=== PATIENT | female | born 1960 | race Caucasian/White ===

== ENCOUNTER 2017-02-15 18:38 | Emergency (ER) | payer MEDICAID, OTHER ==
[2017-02-15 18:57] VITALS: BP 142/94
--- NOTE | 2017-02-16 01:04 | ER ---
The patient's history was taken from the patient and from attending box fabricator. The patient is currently in holding cell for intoxication. REASON FOR VISIT: The patient banged her head on the wall of her cell. There was no loss of consciousness. No attempt to hurt herself, this is accidental in nature. There is a bit of bleeding, so they brought her in to be evaluated whether she needed sutures or tetanus update. The patient has a history of alcohol abuse. She also has a seizure history with a negative seizure workup in the past. She is on Dilantin which she last took earlier today. She had an elevated alcohol level earlier today of approximately 300. She does complain of some discomfort in the area where she banged her head. HISTORY OF PRESENT ILLNESS: The patient lost her footing, banged her head on the wall of her cell. There was no loss of consciousness. She has scalp abrasion on occipital area with some bleeding that has since stopped. She does have a bit of soft tissue swelling present. She had no seizure. She was monitored with a video during the entire time. She has no loss of consciousness. No neurologic complaints. She denies any vomiting, vision changes, fevers, cough, chest pain, palpitations, diarrhea, constipation, urinary complaints, rashes or sores, joint pains, or limited joint motions. No neck pain. She did not suffer any complaints of biting her tongue. When she hit her head. ALLERGIES: THE PATIENT HAS NO KNOWN DRUG ALLERGIES. CURRENT MEDS: Dilantin, she takes 100 mg t.i.d. and she did take her medicine today. PHYSICAL EXAMINATION: VITAL SIGNS: Upon admission to the emergency room, show blood pressure 142/94, pulse 69, saturation on room air 100%. GENERAL: Well-developed, well-nourished female, alert and oriented x3. No acute distress. HEENT: Her head and face are symmetric. She does have some soft tissue swelling on posterior occipital area. There is no evidence of bone depression. There is some abrasion of the skin but no abebe laceration. There is some dry blood present in her hair which was cleaned and dried. Her eyes show EOMI, PERRLA. No nystagmus. No scleral icterus. Ears show normal TMs bilaterally. Nose clear. No blood. Mouth and throat are clear. There is no bleeding. There is no tongue biting. There is no biting of the sides of her mouth. NECK: Supple and symmetric. Trachea is midline. No masses. Thyroid is normal. No bruits are present. HEART: Shows a regular rate and rhythm. No murmurs, rubs, or gallops. No S3. No S4. LUNGS: Clear and equal. ABDOMEN: Soft and nontender without any organomegaly. Bowel sounds x4. BACK: Shows no CVA or cord tenderness. Her gait is normal and narrow. NEUROLOGIC: Cranial nerves 2 through 12 are intact. Babinski is negative. Frontal release signs negative. The patient moves all extremities normally PSYCHIATRIC: The patient's mood is normal and cooperative. ASSESSMENT: 1. Acute alcohol intoxication. 2. Abrasion of scalp. 3. Contusion of head. PLAN: The patient is up to date with her tetanus. She has been seen regularly in clinic. I think she can go back to her cell where she is being monitored closely. If there is any problem, she will come back later, and we will see if she will need for any imaging at that time. I did caution her that she may develop infection and to try to keep the wounds clean. If she develops any pain or fevers over the next 48 hours or so, to return to the clinic or the ER for further evaluation. MARIA /[id number]
== END 2017-02-15 19:15 ==
LOC: LB.ED 18:38
DX: F10.129 Alcohol abuse with intoxication, unspecified (principal); S00.01XA Abrasion of scalp, initial encounter; S00.93XA Contusion of unspecified part of head, initial encounter; X58.XXXA Exposure to other specified factors, initial encounter
CPT/HCPCS: 99282; 99283

== ENCOUNTER 2017-11-29 12:20 | Emergency (ER) | payer OTHER, MEDICAID ==
[2017-11-29 13:23] VITALS: BP 124/77
--- NOTE | 2017-11-29 13:29 | EDM.PDOC ---
ED HPI GENERAL MEDICAL PROBLEM - General Chief Complaint: General Stated Complaint: LEFT KNEE PAIN Time Seen by Provider: 11/29/17 13:28 Source of Information: Reports: Patient, RN History Limitations: Reports: No Limitations - History of Present Illness INITIAL COMMENTS - FREE TEXT/NARRATIVE: 57 yr female presents to ER after a fall onto her left knee at work. States it was slippery and she fell. States pain to left knee and heard a pop when she fell. Pt has ice to knee and has lower leg elevated. Mild swelling to knee noted. ROM limited mildly r/t pain. Left Knee Pain Score (Numeric/FACES): 5 - Related Data Allergies Allergy/AdvReac Type Severity Reaction Status Date / Time No Known Allergies Allergy Verified 04/01/16 08:08 Home Meds: Home Meds Phenytoin 100 mg PO TID #90 cap.er 04/02/16 [Rx] Past Medical History HEENT History: Reports: Impaired Vision Cardiovascular History: Reports: Other (See Below) Other Cardiovascular History: palpitations Gastrointestinal History: Reports: Chronic Constipation, Other (See Below) Other Gastrointestinal History: Has had occult stools; had colonoscopy; unable to get through Neurological History: Reports: Seizure, Other (See Below) Other Neuro History: New onset; Psychiatric History: Reports: Anxiety, Depression, Panic Attack - Infectious Disease History Infectious Disease History: Reports: Measles, Mumps Social & Family History - Family History Musculoskeletal: Reports: None Hematologic: Reports: None Immunologic: Reports: None Oncologic: Reports: None - Tobacco Use Smoking Status *Q: Former Smoker Years of Tobacco use: 15 Packs/Tins Daily: 1 Used Tobacco, but Quit: Yes Month Tobacco Last Used: September Second Hand Smoke Exposure: No ED ROS GENERAL - Review of Systems Review Of Systems: See Below Constitutional: Reports: No Symptoms HEENT: Reports: No Symptoms Respiratory: Reports: No Symptoms Cardiovascular: Reports: No Symptoms Musculoskeletal: Reports: Joint Pain, Joint Swelling. Denies: Muscle Pain Skin: Reports: No Symptoms Neurological: Reports: No Symptoms ED EXAM, GENERAL - Physical Exam Exam: See Below Exam Limited By: No Limitations General Appearance: Alert, No Apparent Distress Ears: Hearing Grossly Normal Nose: Normal Inspection Throat/Mouth: Normal Voice, No Airway Compromise Head: Atraumatic, Normocephalic Respiratory/Chest: No Respiratory Distress Extremities: Joint Swelling, Limited Range of Motion, Redness. No: Increased Warmth Neurological: Alert, Oriented, Normal Cognition, Other (Pain with ambulation) Skin Exam: Warm, Dry, Normal Color Course - Vital Signs Last Recorded V/S: Last Vital Signs Temp 98.2 F 11/29/17 13:21 Pulse 86 11/29/17 13:21 Resp BP 124/77 11/29/17 13:21 Pulse Ox 99 11/29/17 13:21 - Orders/Labs/Meds Meds: Medications Discontinued Medications Generic Name Dose Route Start Last Admin Trade Name Wiliam PRN Reason Stop Dose Admin Ketorolac Tromethamine Confirm 11/29/17 13:56 11/29/17 14:10 Toradol Administered 11/29/17 13:57 30 mg Dose Administration 30 mg .ROUTE .STK-MED ONE - Re-Assessments/Exams Free Text/Narrative Re-Assessment/Exam: 11/29/17 18:52 LE X-ray to left knee, reviewed results with patient. Nondisplaced fracture to patella. Recommend off work X 10 days, RTC next week for follow-up Recommend light activity at home with knee brace on and ice to area 3-5x/day. May take off brace while showering. Recommend no bedrest with this. Rest and light activity at home. May use Ibuprofen and Tylenol for pain relief. Toradol 30 mg IM given X1 in ER. Discharge to care of family. Departure - Departure Time of Disposition: 14:52 Disposition: Home, Self-Care 01 Condition: Good Clinical Impression: Patellar fracture - Discharge Information Instructions: Patellar Fracture, Adult Referrals: PCP,None [Primary Care Provider] - Forms: ED Department Discharge Care Plan Goals: Wear splint as much as possible. Do light stuff around the house. Return to hospital or clinic with any other concerns or if any other problems arise. May take tylenol or Ibuprofen for pain.
[2017-11-29] MEDS ORDERED: Ketorolac 30 MG/ML SDV ONE (13:56)
--- NOTE | 2017-11-29 18:21 | CR ---
DATE OF SERVICE: 11/29/17 CLINICAL DATA: fell on slippery floor LEFT KNEE: No priors. There is an oblique fracture through the mid and distal patella that is nondisplaced. There is a large joint effusion. No other acute abnormalities. IMPRESSION: Patellar fracture with large joint effusion. [id number] [facility]
== END 2017-11-29 14:52 | disposition home or self-care (01) ==
LOC: LB.ED 12:20
DX: S82.002A Unspecified fracture of left patella, initial encounter for closed fracture (principal); Z87.891 Personal history of nicotine dependence; W01.0XXA Fall on same level from slipping, tripping and stumbling without subsequent striking against object, initial encounter; Y99.0 Civilian activity done for income or pay
CPT/HCPCS: 73562; 99283; J1885

== ENCOUNTER 2021-03-27 14:58 | Emergency (ER) | payer SELFPAY ==
[2021-03-27 15:11] VITALS: BP 110/80; PULSE 79
[2021-03-27] MEDS ORDERED: Ketorolac 60 MG/2 ML SDV IM ONE (16:09)
--- NOTE | 2021-03-27 16:14 | EDM.PDOC ---
ED HPI GENERAL MEDICAL PROBLEM - General Chief Complaint: General Stated Complaint: KNEE INJURY AT HOME 03/27/21 Time Seen by Provider: 03/27/21 15:20 Source of Information: Reports: Patient History Limitations: Reports: No Limitations - History of Present Illness INITIAL COMMENTS - FREE TEXT/NARRATIVE: patient here due to right knee pain -- reports that she tripped while walking her dog and landed on her right knee. occurred an hour ago - pain 9 out of 10. no other injuries. Onset: Sudden Duration: Hour(s): (1) Location: Reports: Lower Extremity, Right Quality: Reports: Sharp Severity: Severe Improves with: Reports: Immobilization Worsens with: Reports: Movement Right Knee Pain Score (Numeric/FACES): 5 - Related Data Allergies Allergy/AdvReac Type Severity Reaction Status Date / Time No Known Allergies Allergy Verified 08/28/18 11:16 Home Meds: Home Meds NK [No Known Home Meds] 08/28/18 [History] Past Medical History - Past Health History Medical/Surgical History: Denies Medical/Surgical History HEENT History: Reports: Impaired Vision Cardiovascular History: Reports: Other (See Below) Other Cardiovascular History: palpitations Gastrointestinal History: Reports: Chronic Constipation, Other (See Below) Other Gastrointestinal History: Has had occult stools; had colonoscopy; unable to get through Neurological History: Reports: Seizure, Other (See Below) Other Neuro History: New onset; Psychiatric History: Reports: Anxiety, Depression, Panic Attack - Infectious Disease History Infectious Disease History: Reports: Measles, Mumps Social & Family History - Family History Musculoskeletal: Reports: None Hematologic: Reports: None Immunologic: Reports: None Oncologic: Reports: None - Tobacco Use Tobacco Use Status *Q: Current Every Day Tobacco User Years of Tobacco use: 20 Packs/Tins Daily: 0.5 Used Tobacco, but Quit: No Second Hand Smoke Exposure: Yes - Caffeine Use Caffeine Use: Reports: Coffee, Soda - Recreational Drug Use Recreational Drug Use: No ED ROS GENERAL - Review of Systems Review Of Systems: See Below Constitutional: Reports: No Symptoms HEENT: Reports: No Symptoms Respiratory: Reports: No Symptoms Cardiovascular: Reports: No Symptoms GI/Abdominal: Reports: No Symptoms Musculoskeletal: Reports: Other (knee pain) Skin: Reports: No Symptoms Neurological: Reports: No Symptoms ED EXAM, GENERAL - Physical Exam Exam: See Below Exam Limited By: No Limitations General Appearance: Alert, WD/WN, No Apparent Distress Eye Exam: Bilateral Eye: EOMI Respiratory/Chest: No Respiratory Distress, Lungs Clear Cardiovascular: Normal Peripheral Pulses, Regular Rate, Rhythm Back Exam: Normal Inspection, Full Range of Motion Extremities: Other (right knee swelling, mild TPP, and limited ROM due to pain ) Skin Exam: Warm Course - Vital Signs Last Recorded V/S: Last Vital Signs Temp 36.3 C 03/27/21 15:29 Pulse 79 03/27/21 15:29 Resp 16 03/27/21 15:29 BP 110/80 03/27/21 15:29 Pulse Ox 100 03/27/21 15:29 - Orders/Labs/Meds Orders: Active Orders 24 hr Category Date Time Status Knee 3V Rt [CR] Stat Exams 03/27/21 15:18 Taken - Re-Assessments/Exams Free Text/Narrative Re-Assessment/Exam: 03/27/21 16:12 Xrays right knee - possible fractured patella with small effusion Departure - Departure Time of Disposition: 16:12 Disposition: Home, Self-Care 01 Condition: Good Clinical Impression: Right patella fracture Qualifiers: Encounter type: initial encounter Fracture type: closed Fracture morphology: transverse Fracture alignment: nondisplaced Qualified Code(s): S82.034A - Nondisplaced transverse fracture of right patella, initial encounter for closed fracture - Discharge Information *PRESCRIPTION DRUG MONITORING PROGRAM REVIEWED*: Yes *COPY OF PRESCRIPTION DRUG MONITORING REPORT IN PATIENT MILANA: Yes Referrals: PCP,None [Primary Care Provider] - Sepsis Event Note (ED) - Evaluation Sepsis Screening Result: No Definite Risk - Focused Exam Vital Signs: Vital Signs Temp Pulse Resp BP Pulse Ox 03/27/21 15:29 36.3 C 79 16 110/80 100 03/27/21 15:09 36.3 C 79 16 110/80 100 - Problem List & Annotations (1) Patellar fracture SNOMED Code(s): 74637993 Code(s): S82.009A - UNSP FRACTURE OF UNSP PATELLA, INIT FOR CLOS FX Status: Acute Priority: Medium Current Visit: No Qualifiers: Encounter type: initial encounter Fracture type: closed Fracture morphol ogy: longitudinal Fracture alignment: nondisplaced Laterality: right Qualified Code(s): S82.024A - Nondisplaced longitudinal fracture of right patella, initial encounter for closed fracture - Problem List Review Problem List Initiated/Reviewed/Updated: Yes - My Orders Last 24 Hours: My Active Orders 03/27/21 15:18 Knee 3V Rt [CR] Stat - Assessment/Plan Last 24 Hours: My Active Orders 03/27/21 15:18 Knee 3V Rt [CR] Stat Plan: -- place knee in an immobilizer -- ice the affected area -- use crutches to off load on the affected side -- take pain medications as prescribed -- keep leg elevated to help decrease the swelling -- follow up with the PCP in 1-2 weeks
[2021-03-27] MEDS ORDERED: Ketorolac 60 MG/2 ML SDV ONE (16:22)
--- NOTE | 2021-03-28 09:34 | CR ---
DATE OF SERVICE: 03/27/21 CLINICAL DATA: pain RIGHT KNEE: No priors. There is a comminuted, minimally displaced patellar fracture. No other acute bony abnormalities. There is a moderate size joint effusion/hemarthrosis. No other significant findings. IMPRESSION: Comminuted patellar fracture with moderate joint effusion/hemarthrosis. [id number] [facility]
== END 2021-03-27 16:41 | disposition home or self-care (01) ==
LOC: LB.ED 14:58
DX: S82.034A Nondisplaced transverse fracture of right patella, initial encounter for closed fracture (principal); Z72.0 Tobacco use; W18.41XA Slipping, tripping and stumbling without falling due to stepping on object, initial encounter; Y92.009 Unspecified place in unspecified non-institutional (private) residence as the place of occurrence of the external cause
CPT/HCPCS: 73562-RT; 96372; 99283

== ENCOUNTER 2021-06-17 11:11 | Emergency (ER) | payer SELFPAY ==
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
[2021-06-17 16:04] VITALS: BP 101/68; PULSE 72
== END 2021-06-17 13:00 | disposition left against medical advice (07) ==
LOC: LB.ED 11:11
DX: F10.10 Alcohol abuse, uncomplicated (principal); S61.512A Laceration without foreign body of left wrist, initial encounter; S61.511A Laceration without foreign body of right wrist, initial encounter; X78.8XXA Intentional self-harm by other sharp object, initial encounter
CPT/HCPCS: 99284

== ENCOUNTER 2023-03-26 18:19 | Emergency (ER) | payer SELFPAY ==
[2023-03-26 18:45] VITALS: BP 97/65; PULSE 85
== END 2023-03-26 21:50 | disposition home or self-care (01) ==
LOC: LB.ED 18:19
DX: T74.91XA Unspecified adult maltreatment, confirmed, initial encounter (principal); F17.210 Nicotine dependence, cigarettes, uncomplicated
CPT/HCPCS: 99284

== ENCOUNTER 2023-05-27 09:39 | Observation (INO) | payer SELFPAY ==
[2023-05-27] MEDS ORDERED: Sodium Chloride 0.9% 1,000 ML IV ONE ×2 (09:46→11:42)
[2023-05-27] MEDS: diazePAM 5 MG/ML MDV IV ONE ×3 (09:53→13:44)
[2023-05-27 09:58] LABS: BASOPHILS ABSOLUTE AUTO 0.04 K/uL (0.02-0.10); BASOPHILS PERCENT AUTO 0.5 % (0.0-0.5); EOSINOPHILS ABSOLUTE AUTO 0.11 K/uL (0.04-0.40); EOSINOPHILS PERCENT AUTO 1.5 % (1.0-5.0); HEMATOCRIT 35.5 % (37.0-47.0); HEMOGLOBIN 12.5 g/dL (11.5-16.5); LYMPHOCYTES PERCENT AUTO 20.6 % (20.0-40.0); MEAN CORPUSCULAR HEMOGLOBIN 36.8 pg (27.0-32.0); MEAN CORPUSCULAR HGB CONC 35.2 g/dL (31.0-35.0); MEAN CORPUSCULAR VOLUME 104 fL (76-96); MEAN PLATELET VOLUME 9.6 fL (6.0-10.0); MONOCYTES ABSOLUTE AUTO 0.39 K/uL (0.20-0.80); MONOCYTES PERCENT AUTO 5.3 % (3.0-10.0); NEUTROPHILS ABSOLUTE AUTO 5.25 K/uL (2.00-7.50); NEUTROPHILS PERCENT AUTO 72.1 % (45.0-70.0); PLATELET COUNT,PLT 230 K/uL (150-500); RED CELL DISTRIBUTION WIDTH 11.8 % (11.0-16.0); WHITE BLOOD CELL COUNT,WBC 7.3 K/uL (4.0-11.0)
[2023-05-27] MEDS: levETIRAcetam 500 MG in Sodium Chloride 0.9% 100 ML IV ONE ×2 (10:12→10:18)
[2023-05-27] MEDS ORDERED: levETIRAcetam 500 MG in Sodium Chloride 0.9% 100 ML IV ONE (10:15)
[2023-05-27 10:19] LABS: A/G RATIO 0.8 (0.8-2.0); ALANINE AMINOTRANSFERASE,ALT 51 U/L (12-78); ALKALINE PHOSPHATASE 108 U/L (46-116); ANION GAP 17.3 mmol/L (5.0-15.0); ASPARTATE AMNIOTRANSFERASE,AST 74 U/L (15-37); BILIRUBIN TOTAL 0.3 mg/dL (0.0-1.0); BLOOD UREA NITROGEN,BUN 10 mg/dL (8-26); BUN/CREATININE RATIO 10.2 (6-25); CALCIUM 9.1 mg/dL (8.5-10.1); CARBON DIOXIDE,CO2 18.2 mmol/L (21.0-32.0); CHLORIDE,CL 105 mmol/L (98-107); CREATININE 0.98 mg/dL (0.55-1.02); ESTIMATED GFR 65 mL/min (>60); GLUCOSE RANDOM 169 mg/dL (74-100); POTASSIUM,K 4.5 mmol/L (3.5-5.1); PROTEIN TOTAL,TP 6.6 g/dL (6.4-8.2); SODIUM,NA 136 mmol/L (136-145)
[2023-05-27 10:41] LABS: APPEARANCE,URINE CLEAR (CLEAR); BILIRUBIN,URINE NEGATIVE (NEGATIVE); COLOR,URINE YELLOW; GLUCOSE,URINE NEGATIVE (NEGATIVE); KETONES,URINE NEGATIVE (NEGATIVE); LEUKOCYTE ESTERASE,URINE NEGATIVE (NEGATIVE); NITRITE,URINE NEGATIVE (NEGATIVE); OCCULT BLOOD,URINE NEGATIVE (NEGATIVE); PROTEIN,URINE 100 mg/dL (NEGATIVE); UROBILINOGEN,URINE 0.2 E.U./dL (0.2-1.0)
[2023-05-27 10:45] LABS: AMPHETAMINES SCREEN, URINE NEGATIVE (NEGATIVE); BARBITURATE SCREEN,URINE NEGATIVE (NEGATIVE); BENZODIAZEPINES SCREEN,URINE NEGATIVE (NEGATIVE); METHAMPHETAMINES SCREEN, URINE NEGATIVE (NEGATIVE)
[2023-05-27 10:46] LABS: METHADONE SCREEN, URINE NEGATIVE (NEGATIVE); OXYCODONE SCREEN,URINE NEGATIVE (NEGATIVE); THC SCREEN,URINE 50 NG/ML NEGATIVE (NEGATIVE)
[2023-05-27 10:49] LABS: SQUAMOUS EPITHELIAL CELLS,UR OCCASIONAL /HPF; WBC,URINE 0-5 /HPF
[2023-05-27 10:50] LABS: FINE GRANULAR CASTS,URINE OCCASIONAL /HPF
[2023-05-27] MEDS ORDERED: levETIRAcetam 1,000 MG in Sodium Chloride 0.9% 100 ML IV ONE ×2 (10:59→11:40)
[2023-05-27] MEDS ORDERED: Thiamine 100 MG in Sodium Chloride 0.9% 100 ML IV ONE (11:00)
[2023-05-27] MEDS ORDERED: Thiamine 200 MG/2 ML MDV IVPUSH ONE (11:35)
[2023-05-27] MEDS: Magnesium Sulfate/Water 2 GM in Premix Bag 1 BAG IV ONE ×2 (12:06→12:07)
[2023-05-27] MEDS: Magnesium Sulfate/Water 50 ML ONE ×2 (12:06→12:11)
[2023-05-27] MEDS: Ondansetron 4 MG/2 ML SDV IVPUSH PRN ×2 (13:50→19:59)
[2023-05-27] MEDS ORDERED: LORazepam 1 MG Tab PO PRN (18:29)
[2023-05-27] MEDS ORDERED: Acetaminophen 325 MG Tab PO PRN (18:33)
[2023-05-27] MEDS ORDERED: Sodium Chloride 0.9% 1,000 ML IV SCH (20:00)
[2023-05-27] MEDS: Enoxaparin 40 MG/0.4 ML Syringe SUBCUT SCH (20:06)
[2023-05-27] MEDS: levETIRAcetam 500 MG Tab PO SCH (20:09)
[2023-05-28] MEDS ORDERED: FLUoxetine 20 MG Cap PO SCH (08:00)
[2023-05-28] MEDS: Enoxaparin 40 MG/0.4 ML Syringe SUBCUT SCH (08:04)
[2023-05-28] MEDS: levETIRAcetam 500 MG Tab PO SCH (08:04)
[2023-05-28] MEDS ORDERED: Losartan 50 MG Tab PO SCH (08:15)
[2023-05-28 08:35] LABS: BASOPHILS ABSOLUTE AUTO 0.03 K/uL (0.02-0.10); BASOPHILS PERCENT AUTO 0.4 % (0.0-0.5); EOSINOPHILS ABSOLUTE AUTO 0.07 K/uL (0.04-0.40); EOSINOPHILS PERCENT AUTO 0.9 % (1.0-5.0); HEMATOCRIT 34.7 % (37.0-47.0); LYMPHOCYTES PERCENT AUTO 18.3 % (20.0-40.0); MEAN CORPUSCULAR HGB CONC 34.6 g/dL (31.0-35.0); MEAN CORPUSCULAR VOLUME 104 fL (76-96); MEAN PLATELET VOLUME 9.9 fL (6.0-10.0); MONOCYTES PERCENT AUTO 5.2 % (3.0-10.0); NEUTROPHILS ABSOLUTE AUTO 5.74 K/uL (2.00-7.50); NEUTROPHILS PERCENT AUTO 75.2 % (45.0-70.0); PLATELET COUNT,PLT 206 K/uL (150-500); RED BLOOD CELL COUNT 3.33 M/uL (3.80-5.80); RED CELL DISTRIBUTION WIDTH 11.7 % (11.0-16.0); WHITE BLOOD CELL COUNT,WBC 7.6 K/uL (4.0-11.0)
[2023-05-28 08:45] LABS: A/G RATIO 0.8 (0.8-2.0); ALBUMIN 2.7 g/dL (3.4-5.0); ANION GAP 19.9 mmol/L (5.0-15.0); BILIRUBIN TOTAL 0.3 mg/dL (0.0-1.0); BUN/CREATININE RATIO 9.3 (6-25); CALCIUM 8.7 mg/dL (8.5-10.1); CARBON DIOXIDE,CO2 22.4 mmol/L (21.0-32.0); CREATININE 0.75 mg/dL (0.55-1.02); EST CRCL DRUG DOSING (CG) 61.51 mL/min; POTASSIUM,K 5.3 mmol/L (3.5-5.1); PROTEIN TOTAL,TP 6.2 g/dL (6.4-8.2)
[2023-05-28] MEDS ORDERED: Magnesium Sulfate/Water 50 ML IV ONE (10:10)
[2023-05-28 16:05] VITALS: BP 174/105; PULSE 68
== END 2023-05-28 16:58 | disposition home or self-care (01) ==
LOC: LB.ED 09:39 → LB.MS 18:15 → UNDOADMOB 18:15 → LB.MS 18:22 → LB.ED 18:30
PROVIDERS: ADMIT Physician Assistant; ATTEND Physician Assistant
DX: R56.9 Unspecified convulsions (principal); K59.09 Other constipation; F41.9 Anxiety disorder, unspecified; F32.A Depression, unspecified; R00.2 Palpitations; Z79.899 Other long term (current) drug therapy
CPT/HCPCS: 36415; 51702; 70450; 70553; 80053; 80307; 81001; 83605; 83735; 85025; 93005; 96361; 96365; 96366; 96372; 96375; 96376; 97161; 99285; A9270; G0378; J1650; J1953; J2405; J3360; J3411; J3475; J3490; J7030; 93010

== ENCOUNTER 2023-05-30 18:27 | Observation (INO) | payer SELFPAY ==
[2023-05-30] MEDS ORDERED: Ondansetron 4 MG/2 ML SDV IVPUSH ONE (19:05)
[2023-05-30] MEDS ORDERED: Sodium Chloride 0.9% 10 ML Syringe FLUSH PRN (19:05)
[2023-05-30 19:29] LABS: BASOPHILS ABSOLUTE AUTO 0.04 K/uL (0.02-0.10); BASOPHILS PERCENT AUTO 0.4 % (0.0-0.5); EOSINOPHILS ABSOLUTE AUTO 0.05 K/uL (0.04-0.40); EOSINOPHILS PERCENT AUTO 0.5 % (1.0-5.0); HEMATOCRIT 38.5 % (37.0-47.0); HEMOGLOBIN 13.9 g/dL (11.5-16.5); LYMPHOCYTES ABSOLUTE AUTO 1.91 K/uL (1.50-4.00); MEAN CORPUSCULAR HEMOGLOBIN 36.3 pg (27.0-32.0); MEAN CORPUSCULAR HGB CONC 36.1 g/dL (31.0-35.0); MEAN CORPUSCULAR VOLUME 101 fL (76-96); MEAN PLATELET VOLUME 9.7 fL (6.0-10.0); MONOCYTES ABSOLUTE AUTO 0.85 K/uL (0.20-0.80); NEUTROPHILS ABSOLUTE AUTO 7.74 K/uL (2.00-7.50); NEUTROPHILS PERCENT AUTO 73.1 % (45.0-70.0); PLATELET COUNT,PLT 271 K/uL (150-500); RED BLOOD CELL COUNT 3.83 M/uL (3.80-5.80); RED CELL DISTRIBUTION WIDTH 11.8 % (11.0-16.0); WHITE BLOOD CELL COUNT,WBC 10.6 K/uL (4.0-11.0)
[2023-05-30 19:50] LABS: ALBUMIN 3.3 g/dL (3.4-5.0); BILIRUBIN TOTAL 0.5 mg/dL (0.0-1.0); BUN/CREATININE RATIO 15.9 (6-25); CALCIUM 10.6 mg/dL (8.5-10.1); CARBON DIOXIDE,CO2 25.8 mmol/L (21.0-32.0); CREATININE 1.51 mg/dL (0.55-1.02); EST CRCL DRUG DOSING (CG) 31.95 mL/min; MAGNESIUM 1.4 mg/dL (1.8-2.4); POTASSIUM,K 4.8 mmol/L (3.5-5.1); PROTEIN TOTAL,TP 7.2 g/dL (6.4-8.2)
[2023-05-30 19:51] LABS: A/G RATIO 0.9 (0.8-2.0)
[2023-05-30] MEDS ORDERED: Sodium Chloride 0.9% 1,000 ML IV ONE (19:55)
[2023-05-30] MEDS ORDERED: Magnesium Sulfate/Water 4 GM in Premix Bag 1 BAG IV ONE (19:56)
[2023-05-30] MEDS ORDERED: Magnesium Sulfate/Water 50 ML ONE ×2 (20:06)
[2023-05-30] MEDS: Magnesium Sulfate/Water 2 GM in Premix Bag 1 BAG IV ONE ×2 (20:07→20:39)
[2023-05-30] MEDS ORDERED: LORazepam 2 MG/ML SDV IVPUSH ONE ×2 (20:46→21:38)
[2023-05-30] MEDS ORDERED: LORazepam 2 MG/ML SDV ONE (20:47)
[2023-05-30] MEDS ORDERED: Thiamine 500 MG in Sodium Chloride 0.9% 250 ML IV ONE (21:13)
[2023-05-30] MEDS ORDERED: Sodium Chloride 0.9% 1,000 ML IV SCH ×2 (21:45→22:15)
[2023-05-30] MEDS ORDERED: Ibuprofen 400 MG Tab PO PRN (22:13)
[2023-05-30] MEDS ORDERED: Ondansetron 4 MG/2 ML SDV IV PRN (22:13)
[2023-05-30] MEDS ORDERED: LORazepam 2 MG/ML SDV IV SCH (23:11)
[2023-05-31 07:13] LABS: BASOPHILS ABSOLUTE AUTO 0.05 K/uL (0.02-0.10); BASOPHILS PERCENT AUTO 0.5 % (0.0-0.5); EOSINOPHILS ABSOLUTE AUTO 0.08 K/uL (0.04-0.40); EOSINOPHILS PERCENT AUTO 0.8 % (1.0-5.0); HEMATOCRIT 35.7 % (37.0-47.0); HEMOGLOBIN 12.5 g/dL (11.5-16.5); LYMPHOCYTES ABSOLUTE AUTO 2.13 K/uL (1.50-4.00); LYMPHOCYTES PERCENT AUTO 21.9 % (20.0-40.0); MEAN CORPUSCULAR HEMOGLOBIN 35.7 pg (27.0-32.0); MEAN CORPUSCULAR VOLUME 102 fL (76-96); MONOCYTES ABSOLUTE AUTO 0.83 K/uL (0.20-0.80); MONOCYTES PERCENT AUTO 8.5 % (3.0-10.0); NEUTROPHILS ABSOLUTE AUTO 6.64 K/uL (2.00-7.50); NEUTROPHILS PERCENT AUTO 68.3 % (45.0-70.0); PLATELET COUNT,PLT 222 K/uL (150-500); RED CELL DISTRIBUTION WIDTH 11.8 % (11.0-16.0); WHITE BLOOD CELL COUNT,WBC 9.7 K/uL (4.0-11.0)
[2023-05-31 07:39] LABS: A/G RATIO 0.8 (0.8-2.0); ALBUMIN 2.9 g/dL (3.4-5.0); ANION GAP 12.3 mmol/L (5.0-15.0); BILIRUBIN TOTAL 0.4 mg/dL (0.0-1.0); BUN/CREATININE RATIO 19.1 (6-25); CALCIUM 8.5 mg/dL (8.5-10.1); CARBON DIOXIDE,CO2 25.1 mmol/L (21.0-32.0); CREATININE 0.89 mg/dL (0.55-1.02); EST CRCL DRUG DOSING (CG) 54.21 mL/min; MAGNESIUM 2.1 mg/dL (1.8-2.4); POTASSIUM,K 4.4 mmol/L (3.5-5.1); PROTEIN TOTAL,TP 6.5 g/dL (6.4-8.2)
[2023-05-31] MEDS ORDERED: NIACIN 250 MG PO SCH (08:00)
[2023-05-31] MEDS ORDERED: MULTIVIT MIN PO SCH (08:00)
[2023-05-31] MEDS ORDERED: FOLIC PO SCH (08:00)
[2023-05-31] MEDS ORDERED: levETIRAcetam 500 MG Tab PO SCH (08:00)
[2023-05-31] MEDS ORDERED: DISULFIRAM 250 MG PO SCH (08:00)
[2023-05-31] MEDS ORDERED: [UNRECOGNIZED DRUG - OTHER] PO SCH (08:00)
[2023-05-31] MEDS ORDERED: Non-Formulary Medication 1 Each (Fluoxetine Hcl [Fluoxetine Hcl] 40 MG Capsule) PO SCH (08:00)
[2023-05-31] MEDS ORDERED: LUTEIN PO SCH (08:00)
[2023-05-31] MEDS ORDERED: Losartan 50 MG Tab PO SCH (08:00)
[2023-05-31] MEDS ORDERED: IRON PO SCH (08:00)
[2023-05-31 08:51] VITALS: BP 134/91; PULSE 81
== END 2023-05-31 09:08 | disposition home or self-care (01) ==
LOC: LB.ED 18:27 → LB.MS 22:10 → UNDOADMOB 22:30 → LB.MS 22:30 → UNDODISOB 05-31 09:08
PROVIDERS: ADMIT Nurse Practitioner Family; ATTEND Nurse Practitioner Family
DX: R00.2 Palpitations (principal); K59.09 Other constipation; M19.90 Unspecified osteoarthritis, unspecified site; F32.A Depression, unspecified; F41.0 Panic disorder [episodic paroxysmal anxiety]; R41.82 Altered mental status, unspecified; E83.42 Hypomagnesemia; R79.89 Other specified abnormal findings of blood chemistry; F10.90 Alcohol use, unspecified, uncomplicated; Y90.0 Blood alcohol level of less than 20 mg/100 ml; Z98.51 Tubal ligation status; Z79.899 Other long term (current) drug therapy
CPT/HCPCS: 36415; 70450; 80053; 80307; 82140; 83735; 85025; 96361; 96365; 96366; 96368; 96375; 96376; 99285-25; A0425; A0429; A9270-GY; G0378; J2060; J2405; J3411; J3475; J7030; J7050

== ENCOUNTER 2023-08-11 20:14 | Emergency (ER) | payer OTHER ==
[2023-08-11] MEDS ORDERED: Sodium Chloride 0.9% 10 ML Syringe FLUSH PRN (20:18)
[2023-08-11 20:45] LABS: BASOPHILS ABSOLUTE AUTO 0.02 K/uL (0.02-0.10); BASOPHILS PERCENT AUTO 0.4 % (0.0-0.5); EOSINOPHILS ABSOLUTE AUTO 0.02 K/uL (0.04-0.40); EOSINOPHILS PERCENT AUTO 0.4 % (1.0-5.0); HEMATOCRIT 34.6 % (37.0-47.0); LYMPHOCYTES ABSOLUTE AUTO 2.19 K/uL (1.50-4.00); LYMPHOCYTES PERCENT AUTO 45.1 % (20.0-40.0); MEAN CORPUSCULAR HEMOGLOBIN 33.1 pg (27.0-32.0); MEAN CORPUSCULAR HGB CONC 34.7 g/dL (31.0-35.0); MEAN CORPUSCULAR VOLUME 96 fL (76-96); MEAN PLATELET VOLUME 9.8 fL (6.0-10.0); MONOCYTES ABSOLUTE AUTO 0.63 K/uL (0.20-0.80); NEUTROPHILS PERCENT AUTO 41.1 % (45.0-70.0); PLATELET COUNT,PLT 123 K/uL (150-500); RED BLOOD CELL COUNT 3.62 M/uL (3.80-5.80); RED CELL DISTRIBUTION WIDTH 12.1 % (11.0-16.0); WHITE BLOOD CELL COUNT,WBC 4.9 K/uL (4.0-11.0)
[2023-08-11 20:46] LABS: APPEARANCE,URINE CLEAR (CLEAR); BILIRUBIN,URINE NEGATIVE (NEGATIVE); COLOR,URINE YELLOW; GLUCOSE,URINE NEGATIVE (NEGATIVE); KETONES,URINE TRACE mg/dL (NEGATIVE); LEUKOCYTE ESTERASE,URINE TRACE (NEGATIVE); NITRITE,URINE NEGATIVE (NEGATIVE); OCCULT BLOOD,URINE NEGATIVE (NEGATIVE); PROTEIN,URINE TRACE mg/dL (NEGATIVE); UROBILINOGEN,URINE 0.2 E.U./dL (0.2-1.0)
[2023-08-11 20:54] LABS: RBC,URINE NOT SEEN /HPF
[2023-08-11 20:55] LABS: AMORPHOUS SEDIMENT,URINE FEW /HPF; BACTERIA,URINE OCCASIONAL /HPF; HYALINE CASTS,URINE FEW /HPF; SQUAMOUS EPITHELIAL CELLS,UR FEW /HPF
[2023-08-11 21:02] LABS: A/G RATIO 0.8 (0.8-2.0); ALANINE AMINOTRANSFERASE,ALT 23 U/L (12-78); ALKALINE PHOSPHATASE 89 U/L (46-116); ANION GAP 10.7 mmol/L (5.0-15.0); ASPARTATE AMNIOTRANSFERASE,AST 17 U/L (15-37); BILIRUBIN TOTAL 0.2 mg/dL (0.0-1.0); BLOOD UREA NITROGEN,BUN 22 mg/dL (8-26); BUN/CREATININE RATIO 17.2 (6-25); CALCIUM 9.6 mg/dL (8.5-10.1); CARBON DIOXIDE,CO2 26.6 mmol/L (21.0-32.0); CHLORIDE,CL 103 mmol/L (98-107); CREATININE 1.28 mg/dL (0.55-1.02); ESTIMATED GFR 47 mL/min (>60); GLUCOSE RANDOM 138 mg/dL (74-100); POTASSIUM,K 4.3 mmol/L (3.5-5.1); PROTEIN TOTAL,TP 6.9 g/dL (6.4-8.2); SODIUM,NA 136 mmol/L (136-145)
[2023-08-11] MEDS: Sodium Chloride 0.9% 1,000 ML IV ONE (21:06)
[2023-08-11 22:29] VITALS: BP 119/80; PULSE 69
== END 2023-08-11 22:12 | disposition home or self-care (01) ==
LOC: LB.ED 20:14
DX: M54.9 Dorsalgia, unspecified (principal); R51.9 Headache, unspecified; M54.2 Cervicalgia; I10 Essential (primary) hypertension; Z79.899 Other long term (current) drug therapy; W10.9XXA Fall (on) (from) unspecified stairs and steps, initial encounter
CPT/HCPCS: 36415; 51701; 70450; 72125; 72128; 72131; 80053; 81001; 85025; 93005; 96360; 99283; 99284-25; J7030

== ENCOUNTER 2024-11-07 10:31 | Emergency (ER) | payer OTHER ==
[2024-11-07] MEDS: Sodium Chloride 0.9% 1,000 ML IV SCH (11:00)
[2024-11-07 11:15] LABS: BASOPHILS ABSOLUTE AUTO 0.01 K/uL (0.02-0.10); BASOPHILS PERCENT AUTO 0.2 % (0.0-0.5); EOSINOPHILS ABSOLUTE AUTO 0.08 K/uL (0.04-0.40); EOSINOPHILS PERCENT AUTO 1.5 % (1.0-5.0); HEMATOCRIT 24.2 % (37.0-47.0); LYMPHOCYTES ABSOLUTE AUTO 0.82 K/uL (1.50-4.00); LYMPHOCYTES PERCENT AUTO 15.9 % (20.0-40.0); MEAN CORPUSCULAR HEMOGLOBIN 33.9 pg (27.0-32.0); MEAN CORPUSCULAR HGB CONC 33.1 g/dL (31.0-35.0); MEAN CORPUSCULAR VOLUME 103 fL (76-96); MEAN PLATELET VOLUME 11.6 fL (6.0-10.0); MONOCYTES ABSOLUTE AUTO 0.61 K/uL (0.20-0.80); MONOCYTES PERCENT AUTO 11.8 % (3.0-10.0); NEUTROPHILS ABSOLUTE AUTO 3.65 K/uL (2.00-7.50); NEUTROPHILS PERCENT AUTO 70.6 % (45.0-70.0); PLATELET COUNT,PLT 148 K/uL (150-500); RED BLOOD CELL COUNT 2.36 M/uL (3.80-5.80); RED CELL DISTRIBUTION WIDTH 16.2 % (11.0-16.0); WHITE BLOOD CELL COUNT,WBC 5.2 K/uL (4.0-11.0)
[2024-11-07 11:37] LABS: A/G RATIO 0.5 (0.8-2.0); ANION GAP 13.5 mmol/L (5.0-15.0); BUN/CREATININE RATIO 11.7 (6-25); CALCIUM 8.6 mg/dL (8.5-10.1); CARBON DIOXIDE,CO2 26.7 mmol/L (21.0-32.0); CREATININE 1.03 mg/dL (0.55-1.02); EST CRCL DRUG DOSING (CG) 43.03 mL/min; POTASSIUM,K 3.2 mmol/L (3.5-5.1); PROTEIN TOTAL,TP 5.8 g/dL (6.4-8.2)
[2024-11-07 11:52] LABS: TROPONIN I HIGH SENSITIVITY 5.1 pg/ml (<=60.4)
[2024-11-07] MEDS: Sodium Chloride 0.9% 50 ML SDV FLUSH ONE (12:23)
[2024-11-07] MEDS: Iopamidol 612 MG/ML 100 ML Bottle IV SCH (12:23)
[2024-11-07] MEDS: Pantoprazole 40 MG Vial IVPUSH ONE (14:26)
[2024-11-07 14:49] LABS: HEMATOCRIT 20.1 % (37.0-47.0)
[2024-11-07 14:54] LABS: HEMOGLOBIN 6.6 g/dL (11.5-16.5)
[2024-11-07 16:26] VITALS: BP 102/69; PULSE 70
== END 2024-11-07 16:00 ==
LOC: LB.ED 10:31
DX: K70.31 Alcoholic cirrhosis of liver with ascites (principal); D64.9 Anemia, unspecified; E87.6 Hypokalemia; I10 Essential (primary) hypertension; Z79.899 Other long term (current) drug therapy; Z88.8 Allergy status to other drugs, medicaments and biological substances
CPT/HCPCS: 36415; 71046; 74177; 80053; 83690; 84484; 85014; 85018; 85025; 86140; 86850; 86900; 86901; 93005; 93010; 96361; 96374; 99285; 99285-25; A0425; A0428; J2470; J3490; J7030; Q9967

== ENCOUNTER 2024-11-12 18:38 | Emergency (ER) | payer SELFPAY ==
[2024-11-12] MEDS: Glucagon,Human Recombinant 1 MG Vial IM ONE (18:42)
[2024-11-12] MEDS: EPINEPHrine 1:10,000 1 MG/10 ML Syringe IVPUSH ONE (18:43)
[2024-11-12] MEDS: 50% Dextrose in Water 50 ML Syringe IVPUSH ONE (18:44)
[2024-11-12] MEDS: Sodium Chloride 0.9% 1,000 ML IV SCH (18:51)
[2024-11-12 23:15] VITALS: PULSE 0
[2024-11-12] MEDS ORDERED: Sodium Chloride 0.9% 10 ML Syringe FLUSH PRN (23:55)
[2024-11-22 10:25] LABS: GLUCOSE,POC < 10 mg/dL (74-110)
[2024-11-22 10:26] LABS: GLUCOSE,POC < 10 mg/dL (74-110)
[2024-11-22 10:26] LABS: GLUCOSE,POC < 10 mg/dL (74-110)
[2024-11-22 10:27] LABS: GLUCOSE,POC 37 mg/dL (74-110)
== END 2024-11-12 22:19 | disposition expired ==
LOC: LB.ED 18:38
DX: I46.9 Cardiac arrest, cause unspecified (principal); I10 Essential (primary) hypertension; Z79.899 Other long term (current) drug therapy; Z88.8 Allergy status to other drugs, medicaments and biological substances
CPT/HCPCS: 82947; 92950; 96374; 96375; 99285; 99285-25; A0425; A0429; J1610; J7030